=== PATIENT | female | born 2000 | race Hispanic/Latino ===

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

== ENCOUNTER 2022-08-15 09:16 | Outpatient (CLI) | payer OTHER | END 2022-08-15 09:17 | disposition home or self-care (01) | LOC: NM 09:16 | PROVIDERS: ATTEND Internal Medicine Gastroenterology | DX: K21.9 Gastro-esophageal reflux disease without esophagitis (principal); T18.1 Foreign body in esophagus; R94.8 Abnormal results of function studies of other organs and systems | CPT/HCPCS: 78264; A9541 ==